=== PATIENT | male | born 1980 | race Caucasian/White ===

== ENCOUNTER 2016-10-28 17:42 | Emergency (ER) | payer BC ==
[2016-10-28 18:40] VITALS: TEMP 98.6
--- NOTE | 2016-10-28 19:31 | ED PDOC ---
Arrival/HPI - General Historian: Patient - History of Present Illness Time/Duration: Prior to Arrival Symptom Onset: Sudden <Nolberto Flores - Last Filed: 10/28/16 22:18> <Flakita Mabry - Last Filed: 10/29/16 16:23> - General Chief Complaint: Chest Pain Time Seen by Provider: 10/28/16 18:00 - History of Present Illness Narrative History of Present Illness (Text): 10/28/16 19:15 36 y/o male with hx of GERD presenting with complaints of chest pain. Patient states the pain started about 5 days ago as epigastric abdominal pain which continued to migrate into his substernal chest. He notes the pain as burning in nature and intermittent and worse after eating. The patient has been treated with both Nexium and Protonix in the past however he states he stopped taking Protonix about 4 days ago due to symptoms of dizziness and diaphoresis which he attributed to a Protonix adverse reaction. He was seen at an urgent care clinic earlier today and diagnosed with gastroenteritis. He denies shortness of breath , palpitations, radiation of pain to arm or jaw. Patient is an active tobacco smoker - 1ppd for 17years. He has no family hx of heart disease. Patient has no other personal hx of cardiac risk factors. 10/28/16 19:40 (Nolberto Flores) Past Medical History - Provider Review Nursing Documentation Reviewed: Yes - Cardiac Hx Cardiac Disorders: No - Pulmonary Hx Respiratory Disorders: No - Neurological Hx Neurological Disorder: No - HEENT Hx HEENT Disorder: No - Renal Hx Renal Disorder: No - Endocrine/Metabolic Hx Endocrine Disorders: No - Gastrointestinal Hx Gastrointestinal Disorders: Yes - Psychiatric Hx Substance Use: No - Anesthesia Hx Anesthesia: No <Nolberto Flores - Last Filed: 10/28/16 22:18> Family/Social History - Physician Review Nursing Documentation Reviewed: Yes Family/Social History: No Known Family HX. denies: Diabetes, Hypertension, CAD/ NM Smoking Status: Heavy Smoker > 10 Cigarettes Daily Hx Alcohol Use: No Hx Substance Use: No <Nolberto Flores - Last Filed: 10/28/16 22:18> Allergies/Home Meds <Nolberto Flores - Last Filed: 10/28/16 22:18> <Flakita Mabry - Last Filed: 10/29/16 16:23> Allergies/Adverse Reactions: Allergies No Known Allergies Allergy (Verified 10/28/16 18:40) Review of Systems - Physician Review All systems were reviewed & negative as marked: Yes - Review of Systems Constitutional: Normal. absent: Fatigue, Fevers Eyes: Normal ENT: Normal. absent: Sore Throat Respiratory: absent: SOB, Cough, Wheezing Cardiovascular: Chest Pain. absent: Palpitations, GALLARDO, Syncope Gastrointestinal: Abdominal Pain. absent: Diarrhea, Nausea, Vomiting Genitourinary Male: absent: Dysuria, Frequency, Hematuria Musculoskeletal: absent: Arthralgias, Back Pain, Neck Pain Skin: absent: Rash, Pruritis Neurological: absent: Headache, Dizziness, Focal Weakness Psychiatric: absent: Anxiety, Depression <Nolberto Flores Last Filed: 10/28/16 22:18> Physical Exam Vital Signs Reviewed: Yes Temperature: Afebrile Blood Pressure: Normal Pulse: Regular Respiratory Rate: Normal Appearance: Positive for: Well-Appearing Pain Distress: None Mental Status: Positive for: Alert and Oriented X 3 - Systems Exam Head: Present: Atraumatic, Normocephalic Pupils: Present: PERRL Extroacular Muscles: Present: EOMI Conjunctiva: Present: Normal Mouth: Present: Moist Mucous Membranes Neck: Present: Normal Range of Motion. No: JVD Respiratory/Chest: Present: Clear to Auscultation, Good Air Exchange. No: Respiratory Distress, Accessory Muscle Use, Wheezes, Rales, Rhonchi Cardiovascular: Present: Regular Rate and Rhythm, Normal S1, S2. No: Murmurs Abdomen: Present: Normal Bowel Sounds. No: Tenderness, Distention, Peritoneal Signs Back: Present: Normal Inspection Upper Extremity: Present: Normal Inspection. No: Cyanosis, Edema Lower Extremity: Present: Normal Inspection, NORMAL PULSES. No: Edema, CALF TENDERNESS Neurological: Present: GCS=15, CN II-XII Intact Skin: Present: Warm, Dry. No: Rashes Psychiatric: Present: Alert, Oriented x 3, Normal Insight, Normal Concentration <Nolberto Flores Last Filed: 10/28/16 22:18> Vital Signs Temp Pulse Resp BP Pulse Ox 10/28/16 20:45 70 16 130/80 98 10/28/16 18:36 98.6 F 74 18 133/74 100 Medical Decision Making <Nolberto Flores Last Filed: 10/28/16 22:18> <Flakita Mabry Y - Last Filed: 10/29/16 16:23> ED Course and Treatment: 10/28/16 19:37 36 y/o male with hx GERD presenting with complaints of epigastric abdominal pain radiating in to substernal chest. Will r/o ACS. Symptoms are likely 2/2 viral gastroenteritis vs GERD vs possible pancreatitis - Troponin - EKG - chest xray - CBC - CMP - amylase, lipase (Nolberto Flores) Patient seen and examined with resident. Came up with treatment and disposition plan with resident. A 36 year old male with midabdominal pain/midepigastric pain. Patient has a history of gastritis and feels better w pepcid. pt feels betterand labs and troponin negative. [facility] read xray as possible pneumonia. pt told to follow up w outpt pcp. return to the ED if not better. 10/29/16 16:14 10/29/16 16:14 10/29/16 16:17 10/29/16 16:22 10/29/16 16:22 (Flakita Mabry) - Lab Interpretations Lab Results: 10/28/16 19:50 10/28/16 19:50 Lab Results 10/28/16 19:50: WBC 9.0, RBC 5.64, Hgb 16.8, Hct 47.6, MCV 84.4, MCH 29.8, MCHC 35.3, RDW 12.6, Plt Count 203, MPV 10.6, Gran % 51.9, Lymph % (Auto) 39.1 H, [place] % (Auto) 6.8 H, Eos % (Auto) 1.9, Baso % (Auto) 0.3, Gran # 4.68, Lymph # 3.5 H, [place] # 0.6, Eos # 0.2, Baso # 0.03, Sodium 139, Potassium 4.1, Chloride 104, Carbon Dioxide 23, Anion Gap 16, BUN 13, Creatinine 1.3, Est GFR ( Amer) > 60, Est GFR (Non-Af Amer) > 60, Random Glucose 97, Calcium 9.2, Total Bilirubin 0.4, AST 23, ALT 34, Alkaline Phosphatase 79, Troponin I < 0.01, Total Protein 7.4, Albumin 4.2, Globulin 3.2, Albumin/Globulin Ratio 1.3, Amylase 86, Lipase 180 - RAD Interpretation Radiology Orders: 10/28/16 19:31 CHEST PORTABLE [RAD] Stat - Medication Orders Current Medication Orders: Discontinued Medications Famotidine (Pepcid) 20 mg IVP STAT STA Stop: 10/28/16 20:27 Last Admin: 10/28/16 21:04 Dose: 20 MG IVP Administration Document 10/28/16 21:04 (Rec: 10/28/16 21:05 [facility] [id number] Charges for Administration # of IVP Administrations 1 <Nolberto Flores - Last Filed: 10/28/16 22:18> - PA / POWDER CORE TESTER / Resident Statement / has reviewed & agrees with the documentation as recorded. / has examined the patient and agrees with the treatment plan. - Scribe Statement The provider has reviewed the documentation as recorded by the Scribe <Flakita Mabry - Last Filed: 10/29/16 16:23> - Scribe Statement Radhika Curiel Provider Scribe Attestation: All medical record entries made by the Scribe were at my direction and personally dictated by me. I have reviewed the chart and agree that the record accurately reflects my personal performance of the history, physical exam, medical decision making, and the department course for this patient. I have also personally directed, reviewed, and agree with the discharge instructions and disposition. (Flakita Mabry) Disposition/Present on Arrival - Present on Arrival Any Indicators Present on Arrival: No History of DVT/PE: No History of Uncontrolled Diabetes: No Urinary Catheter: No History of Decub. Ulcer: No History Surgical Site Infection Following: None - Disposition Have Diagnosis and Disposition been Completed?: Yes Disposition Time: 22:18 <Nolberto Flores - Last Filed: 10/28/16 22:18> - Present on Arrival Any Indicators Present on Arrival: No History of DVT/PE: No History of Uncontrolled Diabetes: No Urinary Catheter: No History of Decub. Ulcer: No - Disposition Have Diagnosis and Disposition been Completed?: Yes Disposition Time: 20:00 Patient Plan: Discharge <Flakita Mabry - Last Filed: 10/29/16 16:23> - Disposition Diagnosis: Gastritis, Pneumonia Disposition: HOME/ ROUTINE Condition: GOOD Discharge Instructions (ExitCare): Gastritis (ED), Bacterial Pneumonia (ED) Additional Instructions: follow u p wtih your primary doctor in 1-2 days. bring copy of xray for follow up. return to the ED with any worsening or concerning symptoms. Prescriptions: Azithromycin [Zithromax] 250 mg PO DAILY #6 tab [facility]: [facility], [Non-Staff] - Follow up with primary
[2016-10-28 19:59] LABS: ADD MANUAL DIFF? NO
[2016-10-28 20:07] LABS: BASO # 0.03 K/mm3 (0.0-2.0); BASO % 0.3 % (0.0-3.0); EOS # 0.2 (0.0-0.7); EOS % 1.9 % (1.5-5.0); GRAN # 4.68 (1.4-6.5); GRAN % 51.9 % (50.0-68.0); HEMATOCRIT 47.6 % (42.0-52.0); LYMPH # 3.5 (1.2-3.4); LYMPH % 39.1 % (22.0-35.0); MEAN CELL VOLUME 84.4 fL (80.0-105.0); MEAN CORPUSCULAR HEMOGLOBIN 29.8 pg (25.0-35.0); MEAN CORPUSCULAR HGB CONC 35.3 g/dl (31.0-37.0); MEAN PLATELET VOLUME 10.6 fl (7.0-11.0); MONO # 0.6 (0.1-0.6); MONO % 6.8 % (1.0-6.0); PLATELET COUNT 203 10^3/uL (120.0-450.0); RED CELL DISTRIBUTION WIDTH 12.6 % (11.5-14.5)
[2016-10-28 20:16] LABS: ALB/GLOB RATIO 1.3 (1.1-1.8); ALKALINE PHOSPHATASE 79 U/L (38-133); ALT/SGPT 34 U/L (7-56); AMYLASE 86 U/L (35-125); AST/SGOT 23 U/L (15-59); BILIRUBIN,TOTAL 0.4 mg/dL (0.2-1.3); BLOOD UREA NITROGEN 13 mg/dL (7-21); CALCIUM 9.2 mg/dL (8.4-10.5); CARBON DIOXIDE 23 mmol/L (21-33); CHLORIDE 104 mmol/L (98-107); GFR AFRICAN-AMERICAN > 60; GLUCOSE,RANDOM 97 mg/dL (70-110); LIPASE 180 U/L (23-300); POTASSIUM 4.1 mmol/L (3.6-5.0); SODIUM 139 mmol/L (132-148); TOTAL PROTEIN 7.4 g/dL (5.8-8.3)
[2016-10-28 20:28] LABS: TROPONIN I < 0.01 ng/mL
[2016-10-28 22:40] VITALS: BP 130/80; PULSE 70; RESP 16; O2SAT 98
--- NOTE | 2016-10-29 08:27 | RAD ---
HISTORY: chest pain COMPARISON: No prior. FINDINGS: LUNGS: Prominent lung markings are noted. No evidence of focal infiltrate or consolidation in the lungs. PLEURA: No significant pleural effusion identified, no pneumothorax apparent. CARDIOVASCULAR: Normal. OSSEOUS STRUCTURES: No significant abnormalities. VISUALIZED UPPER ABDOMEN: Normal. OTHER FINDINGS: None. IMPRESSION: Prominent lung markings. No definite evidence of pneumonia or pleural effusion.
--- NOTE | 2016-10-29 15:45 | CARD ---
APPROVED REPORT EKG Measurement Heart [id number] <Conclusion> Normal sinus rhythm Left axis deviation Abnormal ECG
== END 2016-10-28 22:00 | disposition home or self-care (01) ==
LOC: ED 17:42
DX: K29.70 Gastritis, unspecified, without bleeding (principal); J18.9 Pneumonia, unspecified organism